=== PATIENT | male | born 1970 | race Caucasian/White ===

== ENCOUNTER 2018-10-29 16:40 | Inpatient (IN) | payer BC, OTHER ==
[2018-10-29 16:51] VITALS: BMI 22.1
--- NOTE | 2018-10-29 17:10 | PDOC ---
History of Present Illness - General History Source: Patient Exam Limitations: No Limitations - History of Present Illness Initial Comments: 10/29/18 17:03 48 yo male h/o mood disorder on seroquel, 1/2 ppd smoker here with c/o left sided chest pain. pt states started yesterday. felt like someone kicked him in the chest. pain is plueritic, and worse with certain movement. denies trauma. does have h/o old left rib fracture many years ago. denies drug use. no f/c . no family h/o cad. family h/o dm. no h/o pe or dvt. cough chronic nonproductive. <Beatrice Wadsworth - Last Filed: 10/29/18 19:03> <Chad Tesfaye - Last Filed: 10/29/18 19:07> <Honey Gomes - Last Filed: 10/29/18 19:40> - General Chief Complaint: Pain Stated Complaint: LEFT RIB,CHEST BACK PAIN Time Seen by Provider: 10/29/18 16:56 Past History - Past Medical History COPD: No - Suicide/Smoking/Psychosocial Hx Smoking History: Current every day smoker Have you smoked in the past 12 months: Yes Number of Cigarettes Smoked Daily: 10 Information on smoking cessation initiated: Yes Hx Alcohol Use: No Drug/Substance Use Hx: No <Beatrice Wadsworth - Last Filed: 10/29/18 19:03> <Chad Tesfaye - Last Filed: 10/29/18 19:07> <Honey Gomes - Last Filed: 10/29/18 19:40> - Past Medical History Allergies/Adverse Reactions: Allergies Allergy/AdvReac Type Severity Reaction Status Date / Time No Known Allergies Allergy Verified 10/29/18 16:42 Home Medications: Ambulatory Orders Quetiapine Fumarate [Seroquel] 100 tab PO DAILY 10/29/18 Review of Systems - Review of Systems Constitutional: No: Chills, Diaphoresis HEENTM: No: Blurred Vision Respiratory: Yes: Cough, Shortness of Breath, Wheezing Cardiac (ROS): Yes: Chest Pain. No: Edema, Irregular Heart Rate ABD/GI: No: Other : No: Burning, Dysuria, Discharge Musculoskeletal: No: Back Pain, Joint Pain Integumentary: No: Bruising, Change in Color All Other Systems: Reviewed and Negative <Beatrice Wadsworth - Last Filed: 10/29/18 19:03> *Physical Exam - Vital Signs Last Vital Signs Temp Pulse Resp BP Pulse Ox 98.6 F 101 H 20 148/107 H 95 10/29/18 16:41 10/29/18 16:41 10/29/18 16:41 10/29/18 16:41 10/29/18 16:41 - Physical Exam Comments: 10/29/18 17:06 awake alert lungs clear bilat left lateral chest wall ttp. no rebound no guarding. abd soft nt . no skin ecccymosis. ext wwp no edema. no calf tenderness. <Beatrice Wadsworth - Last Filed: 10/29/18 19:03> - Vital Signs Last Vital Signs Temp Pulse Resp BP Pulse Ox 98.6 F 101 H 20 148/107 H 95 10/29/18 16:41 10/29/18 16:41 10/29/18 16:41 10/29/18 16:41 10/29/18 16:41 <Chad Tesfaye - Last Filed: 10/29/18 19:07> - Vital Signs Last Vital Signs Temp Pulse Resp BP Pulse Ox 98.6 F 93 H 20 156/106 H 100 10/29/18 16:41 10/29/18 19:00 10/29/18 18:15 10/29/18 18:15 10/29/18 19:00 <Honey Gomes - Last Filed: 10/29/18 19:40> Procedures - Chest Tube Left Mid Axillary Line 5th ICS Indication: Pneumothorax Georgian Tube Size(cm): 32 Anesthesia: 2% Lidocaine (10ml anesthesize the skin, subcutaneous tissue, superior aspect of rib periosteum, and parietal pleura) Sterile Draping: Yes Sterile Technique: Yes Faye of Air Hooker: Yes Vaseline Gauze Dressing: Yes Suction: Yes Tube Sutured to Skin: Yes Complications: No Post Procedure CXR: Yes (pending) Progress: 10/29/18 19:09 A time out was performed and after the chest x-ray was reviewed, the appropriate side was confirmed and marked. My hands were washed immediately prior to the procedure. I wore a surgical cap, mask with protective eyewear, sterile gown and sterile gloves throughout the procedure. The patient was prepped and draped in a sterile manner using chlorhexidine scrub after the patient was positioned in the usual fashion. 15ml of 2% lidocaine was used to anesthesize the skin, subcutaneous tissue, superior aspect of the rib periosteum and parietal pleura. A 2 cm incision was then made parallel to the rib in the midaxillary line at the level of the 5th rib. The subcutaneous tissue superficial and superior to the rib was dissected bluntly to the level of the pleura. The pleura was then entered bluntly. The disruption in the parietal pleura was expanded bluntly and a finger was inserted and swept carefully in all directions. A 32F Georgian chest tube was then inserted using my finger as a guide. The chest tube was directed over the rib and inserted easily. The chest tube was sutured to the skin at the insertion site, and connected securely with tape to a pleurovac. A vaseline covered dressing and sterile occlusive dressing was placed over the insertion site. No immediate complications were noted. A post-procedure chest x-ray is pending at the time of this note. <Chad Tesfaye - Last Filed: 10/29/18 19:07> ED Treatment Course - LABORATORY CBC & Chemistry Diagram: 10/29/18 17:59 10/29/18 17:45 - RADIOLOGY Radiology Studies Ordered: Category Date Time Status CHEST PA & LAT [RAD] Stat Radiology 10/29/18 17:03 Ordered <Beatrice Wadsworth - Last Filed: 10/29/18 19:03> - LABORATORY CBC & Chemistry Diagram: 10/29/18 17:59 10/29/18 17:45 - ADDITIONAL ORDERS Additional order review: Laboratory Results 10/29/18 10/29/18 10/29/18 17:59 17:59 17:59 PT with INR 11.9 INR 1.06 PTT (Actin FS) 33.7 Sodium Potassium Chloride Carbon Dioxide Anion Gap BUN Creatinine Est GFR (CKD-EPI)AfAm Est GFR (CKD-EPI)NonAf Random Glucose Calcium Total Bilirubin AST ALT Alkaline Phosphatase Troponin I < 0.03 Total Protein Albumin 10/29/18 17:45 PT with INR INR PTT (Actin FS) Sodium 138 Potassium 3.6 Chloride 101 Carbon Dioxide 27 Anion Gap 10 BUN 16.0 Creatinine 1.0 Est GFR (CKD-EPI)AfAm 101.26 Est GFR (CKD-EPI)NonAf 87.37 Random Glucose 92 Calcium 9.3 Total Bilirubin 0.4 AST 12 L ALT 11 L Alkaline Phosphatase 53 Troponin I Total Protein 7.2 Albumin 4.2 10/29/18 17:59 RBC 5.25 MCV 88.0 MCHC 32.6 RDW 12.8 MPV 8.1 Neutrophils % 65.5 Lymphocytes % 23.5 Monocytes % 8.5 Eosinophils % 2.1 Basophils % 0.4 - Medications Given in the ED: ED Medications Discontinued Medications Generic Name Dose Route Start Last Admin Trade Name Romi PRN Reason Stop Dose Admin Fentanyl 50 mcg 10/29/18 17:45 10/29/18 18:31 Sublimaze Injection - IVPUSH 10/29/18 17:46 50 mcg ONCE ONE Administration Midazolam HCl 1 mg 10/29/18 17:45 10/29/18 18:30 Versed - IVPUSH 10/29/18 17:46 1 mg ONCE ONE Administration <Chad Tesfaye - Last Filed: 10/29/18 19:07> - LABORATORY CBC & Chemistry Diagram: 10/29/18 17:59 10/29/18 17:45 - ADDITIONAL ORDERS Additional order review: Laboratory Results 10/29/18 10/29/18 10/29/18 17:59 17:59 17:59 PT with INR 11.9 INR 1.06 PTT (Actin FS) 33.7 Sodium Potassium Chloride Carbon Dioxide Anion Gap BUN Creatinine Est GFR (CKD-EPI)AfAm Est GFR (CKD-EPI)NonAf Random Glucose Calcium Total Bilirubin AST ALT Alkaline Phosphatase Troponin I < 0.03 Total Protein Albumin 10/29/18 17:45 PT with INR INR PTT (Actin FS) Sodium 138 Potassium 3.6 Chloride 101 Carbon Dioxide 27 Anion Gap 10 BUN 16.0 Creatinine 1.0 Est GFR (CKD-EPI)AfAm 101.26 Est GFR (CKD-EPI)NonAf 87.37 Random Glucose 92 Calcium 9.3 Total Bilirubin 0.4 AST 12 L ALT 11 L Alkaline Phosphatase 53 Troponin I Total Protein 7.2 Albumin 4.2 10/29/18 17:59 RBC 5.25 MCV 88.0 MCHC 32.6 RDW 12.8 MPV 8.1 Neutrophils % 65.5 Lymphocytes % 23.5 Monocytes % 8.5 Eosinophils % 2.1 Basophils % 0.4 - Medications Given in the ED: ED Medications Discontinued Medications Generic Name Dose Route Start Last Admin Trade Name Roim PRN Reason Stop Dose Admin Fentanyl 50 mcg 10/29/18 17:45 10/29/18 18:31 Sublimaze Injection - IVPUSH 10/29/18 17:46 50 mcg ONCE ONE Administration Midazolam HCl 1 mg 10/29/18 17:45 10/29/18 18:30 Versed - IVPUSH 10/29/18 17:46 1 mg ONCE ONE Administration Sodium Chloride 1,000 ml 10/29/18 17:45 10/29/18 18:20 Normal Saline - IV 10/29/18 17:46 1,000 ml ONCE ONE Administration <Honey Gomes - Last Filed: 10/29/18 19:40> Medical Decision Making - Medical Decision Making 10/29/18 17:09 48 yo male smoker here with c/o left sided rib / chest pain. worse with palpation and deep breath. differential spontaneous ptx. ca, pneumonia, pe. plan chest labs ekg. 10/29/18 19:03 pt with spontaneous ptx. placed 32 chest tube left side. tolerated procedure well. post cxr pending. will admit for observation <Beatrice Wadsworth - Last Filed: 10/29/18 19:03> *DC/Admit/Observation/Transfer - Discharge Dispostion Decision to Admit order: Yes <Beatrice Wadsworth - Last Filed: 10/29/18 19:03> <Chad Tesfaye - Last Filed: 10/29/18 19:07> - Discharge Dispostion Decision to Admit order: Yes <Honey Gomes - Last Filed: 10/29/18 19:40> Diagnosis at time of Disposition: Pneumothorax
[2018-10-29] MEDS ORDERED: KETOROLAC TROMETHAMINE 15 MG/ML VIAL IVPUSH ONE (17:11)
[2018-10-29] MEDS ORDERED: MIDAZOLAM HCL 2 MG/2 ML SINGLE DOSE VIAL IVPUSH ONE (17:45)
[2018-10-29] MEDS ORDERED: SODIUM CHLORIDE 0.9% 1000 ML INFUS.BAG IV ONE (17:45)
[2018-10-29] MEDS ORDERED: LIDOCAINE HCL 2% (20ML MULTI-DOSE VIAL) NR ONE (18:03)
[2018-10-29] MEDS ORDERED: ACETAMINOPHEN 325 MG TABLET (FP) PO ONE (18:07)
[2018-10-29 18:23] LABS: ALBUMIN 4.2 g/dl (3.4-5.0); BILIRUBIN,TOTAL 0.4 mg/dl (0.2-1); CALCIUM 9.3 mg/dl (8.5-10); POTASSIUM 3.6 mmol/L (3.5-5.1); TOT PROT 7.2 g/dl (6.4-8.2)
[2018-10-29] MEDS ORDERED: MIDAZOLAM HCL 2 MG/2 ML SINGLE DOSE VIAL ONE (18:27)
[2018-10-29 18:36] LABS: BASO % 0.4 % (0-2.0); EOS % 2.1 % (0-4.5); HEMATOCRIT 46.2 % (35.4-49); LYMPH % 23.5 % (8-40); MCH 28.7 pg (25.7-33.7); MCHC 32.6 g/dl (32.0-35.9); MEAN PLT VOLUME 8.1 fl (7.5-11.1); MONO % 8.5 % (3.8-10.2); NEUT % 65.5 % (42.8-82.8); PLATELET COUNT 274 K/MM3 (134-434); RBC 5.25 M/mm3 (4.00-5.60); RDW 12.8 % (11.9-15.9); WHITE BLOOD COUNT 10.6 K/mm3 (4.0-10.8)
[2018-10-29 18:48] LABS: INR 1.06 (0.82-1.09); PROTHROMBIN TIME (PATIENT) 11.9 SEC (10.2-13.0)
[2018-10-29] MEDS ORDERED: ACETAMINOPHEN 325 MG TABLET (FP) ONE (19:22)
[2018-10-29] MEDS ORDERED: KETOROLAC TROMETHAMINE 15 MG/ML VIAL ONE (19:22)
--- NOTE | 2018-10-29 19:54 | HP ---
CHIEF COMPLAINT: Chest pain PCP: Lizabeth Hernandez - last seen 2-3 years ago HISTORY OF PRESENT ILLNESS: 48 year-old male with a PMH significant for depression, and current every day smoker. Woke from sleep around midnight and went to his garage to smoke. [place] chest pain and SOB. Went back to his bedroom, took his evening dose of Seroquel , and went to sleep. Woke up this morning with severe left-sided chest pain like someone kicked him in the chest. Denies any type of trauma or strain. Remote history of rib fractures x 20 years. On arrival to ED found to have large left pneumothorax. 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 [employer] Smoking: current every day smoker, rolls own cigarettes, 1/2 ppd x 30 years; vapes occasionally, last time months ago Alcohol: sober x 24 years Drugs: marijunana 2-3x/week Family History: Father 71 complications from diabetes; mother 72 a&w; stepbrother age 38, had collapsed lung at age 25; three other siblings a&w; twins age 14 one deaf in one ear Allergies No Known Allergies Allergy (Verified 10/29/18 16:42) HOME MEDICATIONS: Home Medications Medication Instructions Recorded Quetiapine Fumarate [Seroquel] 100 tab PO DAILY 10/29/18 REVIEW OF SYSTEMS CONSTITUTIONAL: Absent: fever, chills, diaphoresis, generalized weakness, malaise, loss of appetite, weight change HEENT: Absent: rhinorrhea, nasal congestion, throat pain, throat swelling, difficulty swallowing, mouth swelling, ear pain, eye pain, visual changes CARDIOVASCULAR: Absent: chest pain, syncope, palpitations, irregular heart rate, lightheadedness , peripheral edema RESPIRATORY: +cough, SOB, wheezing, chest pain Absent: cough, shortness of breath, dyspnea with exertion, orthopnea, wheezing, stridor, hemoptysis GASTROINTESTINAL: Absent: abdominal pain, abdominal distension, nausea, vomiting, diarrhea, constipation, melena, hematochezia GENITOURINARY: Absent: dysuria, frequency, urgency, hesitancy, hematuria, flank pain, genital pain MUSCULOSKELETAL: Absent: myalgia, arthralgia, joint swelling, back pain, neck pain SKIN: Absent: rash, itching, pallor HEMATOLOGIC/IMMUNOLOGIC: Absent: easy bleeding, easy bruising, lymphadenopathy, frequent infections ENDOCRINE: Absent: unexplained weight gain, unexplained weight loss, heat intolerance, cold intolerance NEUROLOGIC: Absent: headache, focal weakness or paresthesias, dizziness, unsteady gait, seizure, mental status changes, bladder or bowel incontinence PSYCHIATRIC: Absent: anxiety, depression, suicidal or homicidal ideation, hallucinations. PHYSICAL EXAMINATION Vital Signs - 24 hr 10/29/18 10/29/18 10/29/18 16:41 18:15 19:00 Temperature 98.6 F Pulse Rate 101 H 101 H 93 H Pulse Rate [ 102 H Apical] Respiratory 20 20 Rate Blood Pressure 148/107 H Blood Pressure 156/106 H [Left Arm] O2 Sat by Pulse 95 94 L 100 Oximetry (%) 10/29/18 19:30 Temperature 98.1 F Pulse Rate Pulse Rate [ 95 H Apical] Respiratory 18 Rate Blood Pressure Blood Pressure 150/117 H [Left Arm] O2 Sat by Pulse 100 Oximetry (%) GENERAL: Awake, alert, and fully oriented, in acute distress secondary to pain HEAD: Normal with no signs of trauma. LUNGS: breath sounds diminished left base; chest tube secured, dressing c/d/i HEART: Regular rate and rhythm, S1 and S2 ABDOMEN: Soft, nontender, not distended MUSCULOSKELETAL: Normal range of motion at all joints. No bony deformities or tenderness. No CVA tenderness. UPPER EXTREMITIES: 2+ pulses, warm, well-perfused. No cyanosis. No clubbing. No peripheral edema. LOWER EXTREMITIES: 2+ pulses, warm, well-perfused. No calf tenderness. No peripheral edema. NEUROLOGICAL: Cranial nerves II-XII intact. Normal speech. Laboratory Results - last 24 hr 10/29/18 10/29/18 10/29/18 17:45 17:59 17:59 WBC 10.6 RBC 5.25 Hgb 15.0 Hct 46.2 MCV 88.0 MCH 28.7 MCHC 32.6 RDW 12.8 Plt Count 274 MPV 8.1 Absolute Neuts (auto) 7.0 Neutrophils % 65.5 Lymphocytes % 23.5 Monocytes % 8.5 Eosinophils % 2.1 Basophils % 0.4 PT with INR INR PTT (Actin FS) 33.7 Sodium 138 Potassium 3.6 Chloride 101 Carbon Dioxide 27 Anion Gap 10 BUN 16.0 Creatinine 1.0 Est GFR (CKD-EPI)AfAm 101.26 Est GFR (CKD-EPI)NonAf 87.37 Random Glucose 92 Calcium 9.3 Total Bilirubin 0.4 AST 12 L ALT 11 L Alkaline Phosphatase 53 Troponin I Total Protein 7.2 Albumin 4.2 10/29/18 10/29/18 17:59 17:59 WBC RBC Hgb Hct MCV MCH MCHC RDW Plt Count MPV Absolute Neuts (auto) Neutrophils % Lymphocytes % Monocytes % Eosinophils % Basophils % PT with INR 11.9 INR 1.06 PTT (Actin FS) Sodium Potassium Chloride Carbon Dioxide Anion Gap BUN Creatinine Est GFR (CKD-EPI)AfAm Est GFR (CKD-EPI)NonAf Random Glucose Calcium Total Bilirubin AST ALT Alkaline Phosphatase Troponin I < 0.03 Total Protein Albumin ASSESSMENT/PLAN: 48 year-old male with a PMH significant for depression and current every day smoker. Admitted for large left spontaneous pneumothorax. Spontaneous left pneumothorax --chest tube to Pleurovac suction, lung reinflated on repeat CXR --hemodynamically stable --Tylenol, oxycodone --pulmonary consult Depression --continue Seroquel FEN Fluids: PO intake adequate Electrolytes: repleteas indicated Nutrition: regular diet Dispo: continues to require inpatient care. Full code. Visit type - Emergency Visit Emergency Visit: Yes Care time: The patient presented to the Emergency Department on the above date and was hospitalized for further evaluation of their emergent condition. - New Patient This patient is new to me today: Yes Date on this admission: 10/29/18 - Critical Care Critical Care patient: No
[2018-10-29] MEDS ORDERED: morphine CARPU-JECT 4 MG/1 ML DISP.SYRIN IVPUSH ONE ×2 (20:23→21:27)
[2018-10-29] MEDS ORDERED: morphine SULFATE 4 MG/ML VIAL ONE ×2 (20:37→21:30)
[2018-10-29] MEDS ORDERED: QUEtiapine FUMARATE 25 MG TABLET (FP) ONE (21:30)
[2018-10-29] MEDS: QUEtiapine FUMARATE 100 MG TABLET (FP) PO SCH (21:37)
[2018-10-29 22:26] LABS: COCAINE, UR NEGATIVE ng/ml (CUTOFF=300); METHADONE, UR NEGATIVE ng/ml (CUTOFF=300); OPIATES, URI NEGATIVE ng/ml (CUTOFF=300); PHENCYCLIDINE,URINE NEGATIVE ng/ml (CUTOFF=25); URINE AMPHETAMINES NEGATIVE ng/ml (CUTOFF=500); URINE BARBITURATES NEGATIVE ng/ml (CUTOFF=200)
[2018-10-29 22:28] LABS: URINE BENZODIAZEPINES POSITIVE ng/ml (CUTOFF=200)
[2018-10-30] MEDS: oxyCODONE HCL 5 MG TABLET PO PRN ×2 (05:44→15:50)
[2018-10-30] MEDS: ACETAMINOPHEN 325 MG TABLET (FP) PO PRN ×2 (05:44→17:30)
--- NOTE | 2018-10-30 08:31 | PN ---
Progress Note, Physician Chief Complaint: c/o pain related to Chest tube History of Present Illness: 48 year-old male with a PMH significant for depression, and current every day smoker. Woke from sleep around midnight and went to his garage to smoke. [place] chest pain and SOB. Went back to his bedroom, took his evening dose of Seroquel , and went to sleep. Woke up this morning with severe left-sided chest pain like someone kicked him in the chest. Denies any type of trauma or strain. Remote history of rib fractures x 20 years. On arrival to ED found to have large left pneumothorax. ER course was notable for: (1) CXR: large left pneumo (2) 32F left chest tube (3) BP 156/106 - Current Medication List Current Medications: Active Medications Acetaminophen (Tylenol -) 650 mg PO Q6H PRN PRN Reason: PAIN LEVEL 6-10 Last Admin: 10/30/18 05:44 Dose: 650 mg Oxycodone HCl (Roxicodone -) 10 mg PO Q6H PRN PRN Reason: PAIN LEVEL 6-10 Last Admin: 10/30/18 05:44 Dose: 10 mg Quetiapine Fumarate (Seroquel -) 100 mg PO DAILY [facility] Last Admin: 10/29/18 21:37 Dose: 100 mg - Objective Vital Signs: Vital Signs Temperature 98 F 10/30/18 06:00 Pulse Rate 91 H 10/30/18 06:00 Respiratory Rate 20 10/30/18 06:00 Blood Pressure 133/76 10/30/18 06:00 O2 Sat by Pulse Oximetry (%) 100 10/30/18 00:28 Constitutional: Yes: Well Nourished, No Distress, Calm Eyes: Yes: WNL, Conjunctiva Clear, EOM Intact HENT: Yes: WNL, Atraumatic, Normocephalic Neck: Yes: WNL, Supple, Trachea Midline Cardiovascular: Yes: WNL, Regular Rate and Rhythm Respiratory: Yes: Regular, CTA Bilaterally, Other (CT to left) Gastrointestinal: Yes: WNL, Normal Bowel Sounds, Soft ...Rectal Exam: Yes: Deferred Genitourinary: Yes: WNL Breast(s): Yes: WNL Musculoskeletal: Yes: WNL Extremities: Yes: WNL Edema: No Peripheral Pulses WNL: Yes Peripheral Pulses: Left Radial: 2+, Right Radial: 2+, Left Doralis Pedis: 2+, Right Dorsalis Pedis: 2+, Left Femoral: 2+, Right Femoral: 2+ Integumentary: Yes: WNL Neurological: Yes: WNL, Alert, Oriented ...Motor Strength: WNL Psychiatric: Yes: WNL, Alert, Oriented Labs: CBC, BMP 10/29/18 17:59 10/29/18 17:45 INR, PTT INR 1.06 (0.82-1.09) 10/29/18 17:59 - ....Imaging Chest X-ray: Report Reviewed, Image Reviewed (CT noted to left chest, residual PTX noted) Problem List - Problems (1) Prophylactic measure Assessment/Plan: FEN adequate PO intake monitor electrolytes regular diet DVT ambulatory Dispo full code mainatin as in patient discharge planning Code(s): Z29.9 - ENCOUNTER FOR PROPHYLACTIC MEASURES, UNSPECIFIED (2) Depression Assessment/Plan: c/w home seroquel Code(s): F32.9 - MAJOR DEPRESSIVE DISORDER, SINGLE EPISODE, UNSPECIFIED (3) Pneumothorax Assessment/Plan: [address] plain in ED for large Ptx residual Ptx on CXr today Taken off sx by pulmonary monitor off sx and repeat CXR in am for possible d/c of tube Code(s): J93.9 - PNEUMOTHORAX, UNSPECIFIED (4) Smoker Assessment/Plan: c/w nicotine patch while in patient smoking cessation counseling Code(s): F17.200 - NICOTINE DEPENDENCE, UNSPECIFIED, UNCOMPLICATED Visit type - Emergency Visit Emergency Visit: Yes ED Registration Date: 10/30/18 Care time: The patient presented to the Emergency Department on the above date and was hospitalized for further evaluation of their emergent condition. - New Patient This patient is new to me today: Yes Date on this admission: 10/30/18 - Critical Care Critical Care patient: No - Discharge Referral Referred to [facility] No
--- NOTE | 2018-10-30 10:20 | CON.PULM ---
Consult Consult Specialty:: PULMONARY Referred by:: RADHA Landon Reason for Consultation:: pneumothorax - History of Present Illness Chief Complaint: chest pain History of Present Illness: 48yo male with h/o depression, smoker who was admitted with left sided chest pain and shortness of breath. Found to have a left pneumothorax s/p chest tube placement. Denies any trauma, heavy lifting, strenuous exercise. No history of pneumothorax. He is a long time smoker ~30 years, rolls his own cigarettes. 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 - History Source History Provided By: Patient, Medical Record Limitations to Obtaining History: No Limitations - Alcohol/Substance Use Hx Alcohol Use: No - Smoking History Smoking history: Current every day smoker Have you smoked in the past 12 months: Yes Aproximately how many cigarettes per day: 10 Home Medications - Allergies Allergies/Adverse Reactions: Allergies Allergy/AdvReac Type Severity Reaction Status Date / Time No Known Allergies Allergy Verified 10/29/18 16:42 - Home Medications Home Medications: Ambulatory Orders Quetiapine Fumarate [Seroquel] 100 tab PO DAILY 10/29/18 Review of Systems - Review of Systems Constitutional: denies: Chills, Fever, Weakness Eyes: denies: Recent Change in Vision HENT: denies: Nasal Congestion, Throat Pain Neck: denies: Stiffness, Tenderness Cardiovascular: reports: Chest Pain, Shortness of Breath Respiratory: denies: Cough, Hemoptysis, Wheezing Gastrointestinal: denies: Abdominal Pain, Nausea, Vomiting Genitourinary: denies: Dysuria, Hematuria Neurological: denies: Dizziness, Headache Endocrine: denies: Unexplained Weight Loss Physical Exam Vital Sings: Vital Signs Temperature 98 F 10/30/18 06:00 Pulse Rate 91 H 10/30/18 06:00 Respiratory Rate 20 10/30/18 06:00 Blood Pressure 133/76 10/30/18 06:00 O2 Sat by Pulse Oximetry (%) 100 10/30/18 00:28 Constitutional: Yes: Calm Eyes: Yes: Conjunctiva Clear, EOM Intact HENT: Yes: Atraumatic, Normocephalic Neck: Yes: Supple, Trachea Midline Cardiovascular: Yes: Regular Rate and Rhythm Respiratory: Yes: Regular, Diminished (decreased at the bases) ...Clubbing: No Gastrointestinal: Yes: Normal Bowel Sounds, Soft. No: Tenderness Edema: No Neurological: Yes: Alert, Oriented Labs: CBC, BMP 10/29/18 17:59 10/29/18 17:45 Imaging - Results Chest X-ray: Report Reviewed, Image Reviewed (resolved pneumothorax, chest tube in place) Problem List - Problems (1) Pneumothorax Code(s): J93.9 - PNEUMOTHORAX, UNSPECIFIED Assessment/Plan Primary Spontaneous Pneumothorax Smoker Depression - no air leak seen on pleuravac, placed chest tube to water seal - CT chest noncontrast - plan to clamp chest tube in AM, repeat CXR and d/c chest tube if lung remains inflated - nicotine patch - DVT prophylaxis Thank you for this consult Dave Palafox MD
[2018-10-30] MEDS: QUEtiapine FUMARATE 100 MG TABLET (FP) PO SCH (10:44)
--- NOTE | 2018-10-30 11:11 | EKG ---
Test Reason : Blood Pressure : / mmHG Vent. Rate : 107 BPM Atrial Rate : 107 BPM P-R Int : 164 ms QRS Dur : 084 ms QT Int : 334 ms P-R-T Axes : 082 072 078 degrees QTc Int : 445 ms POOR DATA QUALITY, INTERPRETATION MAY BE ADVERSELY AFFECTED SINUS TACHYCARDIA BIATRIAL ENLARGEMENT ABNORMAL ECG NO PREVIOUS ECGS AVAILABLE Confirmed by Serge Del Cid MD ([id number]) on 10/30/2018 11:10:53 AM Referred By: Confirmed By:Serge Del Cid MD
[2018-10-30] MEDS: NICOTINE 14 MG/24 HOURS TOPICAL PATCH TD SCH (14:20)
[2018-10-30] MEDS ORDERED: morphine SO4 SUSTAINED ACTING 30 MG TABLET.SA PO PRN (21:25)
[2018-10-30] MEDS: DOCUSATE SODIUM 100 MG CAPSULE (FP) PO SCH (21:41)
[2018-10-30] MEDS ORDERED: QUEtiapine FUMARATE 100 MG TABLET (FP) PO SCH (22:00)
[2018-10-31] MEDS: ACETAMINOPHEN 325 MG TABLET (FP) PO PRN (06:20)
--- NOTE | 2018-10-31 07:38 | PN ---
Progress Note, Physician Chief Complaint: c/o pain related to Chest tube History of Present Illness: 48 year-old male with a PMH significant for depression, and current every day smoker. Woke from sleep around midnight and went to his garage to smoke. [place] chest pain and SOB. Went back to his bedroom, took his evening dose of Seroquel , and went to sleep. Woke up this morning with severe left-sided chest pain like someone kicked him in the chest. Denies any type of trauma or strain. Remote history of rib fractures x 20 years. On arrival to ED found to have large left pneumothorax. ER course was notable for: (1) CXR: large left pneumo (2) 32F left chest tube (3) BP 156/106 - Current Medication List Current Medications: Active Medications Acetaminophen (Tylenol -) 650 mg PO Q6H PRN PRN Reason: PAIN LEVEL 6-10 Last Admin: 10/31/18 06:20 Dose: 650 mg Docusate Sodium (Colace -) 100 mg PO BID [facility] Last Admin: 10/30/18 21:41 Dose: 100 mg Morphine Sulfate (Ms Contin -) 30 mg PO Q8H PRN PRN Reason: PAIN LEVEL 6-10 Last Admin: 10/30/18 21:41 Dose: 30 mg Nicotine (Nicoderm Patch -) 14 mg TD DAILY [facility] Last Admin: 10/30/18 14:20 Dose: 14 mg Quetiapine Fumarate (Seroquel -) 100 mg PO HS [facility] Last Admin: 10/30/18 21:42 Dose: 100 mg - Objective Vital Signs: Vital Signs Temperature 98.0 F 10/30/18 20:00 Pulse Rate 95 H 10/30/18 20:00 Respiratory Rate 20 10/30/18 20:00 Blood Pressure 135/79 10/30/18 20:00 O2 Sat by Pulse Oximetry (%) 98 10/30/18 21:00 Labs: CBC, BMP 10/29/18 17:59 10/29/18 17:45 INR, PTT INR 1.06 (0.82-1.09) 10/29/18 17:59 Problem List - Problems (1) Prophylactic measure Code(s): Z29.9 - ENCOUNTER FOR PROPHYLACTIC MEASURES, UNSPECIFIED (2) Depression Code(s): F32.9 - MAJOR DEPRESSIVE DISORDER, SINGLE EPISODE, UNSPECIFIED (3) Pneumothorax Code(s): J93.9 - PNEUMOTHORAX, UNSPECIFIED (4) Smoker Code(s): F17.200 - NICOTINE DEPENDENCE, UNSPECIFIED, UNCOMPLICATED
[2018-10-31] MEDS ORDERED: MORPHINE SULFATE 2 MG/ML VIAL IVPUSH PRN (09:11)
--- NOTE | 2018-10-31 09:14 | PN ---
Progress Note (short form) - Note Progress Note: PULMONARY Pain at chest tube site. No air leak on pleuravac. Small left sided apical pneumothorax on CXR. Vital Signs Period Temp Pulse Resp BP Sys/Sinclair Pulse Ox Last 24 Hr 97.8 F-98.8 F 82-97 20-20 124-161/76-96 98 Gen: NAD at rest Heart: RRR Lung: bilateral breath sounds Abd: soft, nontender Ext: no edema CBC, BMP 10/29/18 17:59 10/29/18 17:45 Active Medications Acetaminophen (Tylenol -) 650 mg PO Q6H PRN PRN Reason: PAIN LEVEL 7-10 Last Admin: 10/31/18 06:20 Dose: 650 mg Docusate Sodium (Colace -) 100 mg PO BID [facility] Last Admin: 10/30/18 21:41 Dose: 100 mg Morphine Sulfate (Morphine Sulfate) 2 mg IVPUSH Q4H PRN PRN Reason: PAIN LEVEL 4-6 Nicotine (Nicoderm Patch -) 14 mg TD DAILY [facility] Last Admin: 10/30/18 14:20 Dose: 14 mg Quetiapine Fumarate (Seroquel -) 100 mg PO HS [facility] Last Admin: 10/30/18 21:42 Dose: 100 mg A/P Primary Spontaneous Pneumothorax Smoker Depression - clamped chest tube - repeat CXR in 1-2 hrs, if no change in pneumo will d/c tube - smoking cessation stressed - nicotine patch - DVT prophylaxis Problem List - Problems (1) Pneumothorax Code(s): J93.9 - PNEUMOTHORAX, UNSPECIFIED
--- NOTE | 2018-10-31 09:24 | DS ---
Physical Exam: SUBJECTIVE: Patient seen and examined 48 year-old male with a PMH significant for depression, and current every day smoker. Woke from sleep around midnight and went to his garage to smoke. [place] chest pain and SOB. Went back to his bedroom, took his evening dose of Seroquel , and went to sleep. Woke up this morning with severe left-sided chest pain like someone kicked him in the chest. Denies any type of trauma or strain. Remote history of rib fractures x 20 years. On arrival to ED found to have large left pneumothorax. ER course was notable for: (1) CXR: large left pneumo (2) 32F left chest tube (3) BP 156/106 OBJECTIVE: Vital Signs Period Temp Pulse Resp BP Sys/Sinclair Pulse Ox Last 24 Hr 97.8 F-98.8 F 82-97 20-20 124-161/76-96 98 PHYSICAL EXAM Constitutional: Yes: Well Nourished, No Distress, Calm Eyes: Yes: WNL, Conjunctiva Clear, EOM Intact HENT: Yes: WNL, Atraumatic, Normocephalic Neck: Yes: WNL, Supple, Trachea Midline Cardiovascular: Yes: WNL, Regular Rate and Rhythm Respiratory: Yes: Regular, CTA Bilaterally Gastrointestinal: Yes: WNL, Normal Bowel Sounds, Soft ...Rectal Exam: Yes: Deferred Genitourinary: Yes: WNL Breast(s): Yes: WNL Musculoskeletal: Yes: WNL Extremities: Yes: WNL Edema: No Peripheral Pulses WNL: Yes Peripheral Pulses: Left Radial: 2+, Right Radial: 2+, Left Doralis Pedis: 2+, Right Dorsalis Pedis: 2+, Left Femoral: 2+, Right Femoral: 2+ Integumentary: Yes: WNL Neurological: Yes: WNL, Alert, Oriented ...Motor Strength: WNL Psychiatric: Yes: WNL, Alert, Oriented Labs: CBC, BMP 10/29/18 17:59 10/29/18 17:45 INR, PTT INR 1.06 (0.82-1.09) 10/29/18 17:59 - ....Imaging Chest X-ray: Report Reviewed, Image Reviewed (CT noted to left chest, residual PTX noted). Repeat CXR after removal shows slight residual Ptx remaining HOSPITAL COURSE: Date of Admission:10/30/18 Date of Discharge: 10/31/18 Problem List - Problems (1) Prophylactic measure Assessment/Plan: FEN May resume regular diet on discharge DVT ambulatory Dispo Medcially stable for discharge to home Code(s): Z29.9 - ENCOUNTER FOR PROPHYLACTIC MEASURES, UNSPECIFIED (2) Depression Assessment/Plan: c/w home seroquel Code(s): F32.9 - MAJOR DEPRESSIVE DISORDER, SINGLE EPISODE, UNSPECIFIED (3) Pneumothorax Assessment/Plan: [address] plain in ED for large Ptx and placed to suction. Places on water seal 10/30 and CXR showed no increase in size. Tube was reomved on 10/31 and size of ptx remained unchaged. Left lung remains inflated Code(s): J93.9 - PNEUMOTHORAX, UNSPECIFIED (4) Smoker Assessment/Plan: c/w nicotine patch while in patient smoking cessation counseling Code(s): F17.200 - NICOTINE DEPENDENCE, UNSPECIFIED, UNCOMPLICATED Patient medically cleared for discharge to home. Follow up with PCP in 2 weeks Minutes to complete discharge: 35 Discharge Summary Reason For Visit: LEFT PNEUMOTHORAX Current Active Problems Depression (Acute) Pneumothorax (Acute) Prophylactic measure (Acute) Smokeless tobacco use (Acute) Smoker (Acute) Hospital Course: - ....Imaging Chest X-ray: Report Reviewed, Image Reviewed (CT noted to left chest, residual PTX noted). Repeat CXR after removal shows slight residual Ptx remaining HOSPITAL COURSE: Date of Admission:10/30/18 Date of Discharge: 10/31/18 Problem List - Problems (1) Prophylactic measure Assessment/Plan: FEN May resume regular diet on discharge DVT ambulatory Dispo Medcially stable for discharge to home Code(s): Z29.9 - ENCOUNTER FOR PROPHYLACTIC MEASURES, UNSPECIFIED (2) Depression Assessment/Plan: c/w home seroquel Code(s): F32.9 - MAJOR DEPRESSIVE DISORDER, SINGLE EPISODE, UNSPECIFIED (3) Pneumothorax Assessment/Plan: [address] plain in ED for large Ptx and placed to suction. Places on water seal 10/30 and CXR showed no increase in size. Tube was reomved on 10/31 and size of ptx remained unchaged. Left lung remains inflated Code(s): J93.9 - PNEUMOTHORAX, UNSPECIFIED (4) Smoker Assessment/Plan: c/w nicotine patch while in patient smoking cessation counseling Code(s): F17.200 - NICOTINE DEPENDENCE, UNSPECIFIED, UNCOMPLICATED Patient medically cleared for discharge to home. Follow up with PCP in 2 weeks - Instructions Diet, Activity, Other Instructions: You were found to have a collapsed lung on the left side from unknow reasons. A chest tube was placed and the air way removed and your lung was re-inflated. the chest tube was removed today and the a repeated chest xray showed that the lung was still inflated with minimal amount or air in the pleural space. This air will be reabsorbed over time by your body. If you experience shortness or sharp pain in chest return back to the ED. If you develop any fevers ot shills return back to the ED. There are no changes in your medications and you can resume your normal diet - Home Medications Comprehensive Discharge Medication List: Ambulatory Orders Quetiapine Fumarate [Seroquel] 100 tab PO DAILY 10/29/18 Problem List - Problems (1) Prophylactic measure Code(s): Z29.9 - ENCOUNTER FOR PROPHYLACTIC MEASURES, UNSPECIFIED (2) Depression Code(s): F32.9 - MAJOR DEPRESSIVE DISORDER, SINGLE EPISODE, UNSPECIFIED (3) Pneumothorax Code(s): J93.9 - PNEUMOTHORAX, UNSPECIFIED (4) Smoker Code(s): F17.200 - NICOTINE DEPENDENCE, UNSPECIFIED, UNCOMPLICATED This patient is new to me today: No Emergency Visit: Yes ED Registration Date: 10/30/18 Care time: The patient presented to the Emergency Department on the above date and was hospitalized for further evaluation of their emergent condition. Critical Care patient: No - Discharge Referral Referred to [facility] No
[2018-10-31] MEDS: DOCUSATE SODIUM 100 MG CAPSULE (FP) PO SCH (09:43)
[2018-10-31] MEDS: NICOTINE 14 MG/24 HOURS TOPICAL PATCH TD SCH (09:44)
[2018-10-31] MEDS ORDERED: QUEtiapine FUMARATE 100 MG TABLET (FP) PO SCH (10:00)
[2018-10-31 16:33] VITALS: BP 121/71; PULSE 90; TEMP 97.4
== END 2018-10-31 14:55 | disposition home or self-care (01) | DRG 201 ==
LOC: FER 16:40 → J8W 10-30 00:10
PROVIDERS: ADMIT Internal Medicine; ATTEND Nurse Practitioner Acute Care
DX: J93.83 Other pneumothorax (principal); F32.9 Major depressive disorder, single episode, unspecified; F17.210 Nicotine dependence, cigarettes, uncomplicated
CPT/HCPCS: 36415; 71045-TC-FY; 71046-TC-FY; 71250-TC; 80053; 80307; 81003; 84484; 85025; 85610; 85730; 93005; 99285-25; J7030